=== PATIENT | male | born 1965 | race Caucasian/White ===

== ENCOUNTER 2024-11-09 14:16 | Inpatient (IN) | payer MEDICAID, OTHER ==
[~2024-11-09] VITALS: Ht 170.2 cm; Wt 90.3 kg
[2024-11-09 04:30] VITALS: BP 140/74; PULSE 94; RESP 18; TEMP 37.1
[2024-11-09] MEDS: SODIUM CHLORIDE 0.9% 250 ML IV ONE (15:44)
[2024-11-09 16:16] LABS: BASOPHILS % 1.4 % (0.0-2.0); EOSINOPHILS % 6.6 % (0.0-5.0); HEMATOCRIT. 31.4 % (42.0-52.0); HEMOGLOBIN. 9.8 g/dL (14.0-18.0); LYMPHOCYTES % 34.7 % (20.0-50.0); MEAN CORPUSCULAR HEMOGLOBIN 28.4 pg (28.0-32.0); MEAN CORPUSCULAR HGB CONC 31.1 g/dL (31.0-37.0); MEAN CORPUSCULAR VOLUME 91.2 fL (80.0-94.0); MEAN PLATELET VOLUME 8.9 fl (7.4-10.4); NEUTROPHILS % 43.3 % (40.0-76.0); PLATELET 120 x1000/uL (130-400); RED BLOOD CELL COUNT 3.44 mill/uL (4.7-6.1); WHITE BLOOD COUNT 4.1 x1000/uL (4.5-11.0)
[2024-11-09 16:17] LABS: DIFFERENTIAL COMMENT 1
[2024-11-09 16:18] LABS: ADD RBC MORPHOLOGY YES
[2024-11-09 16:27] LABS: CHLORIDE 113 mEq/L (98-107); POTASSIUM 5.1 mEq/L (3.5-5.1); SODIUM 145 mEq/L (136-145)
[2024-11-09 16:28] LABS: CARBON DIOXIDE 25 mEq/L (21-32)
[2024-11-09 16:29] LABS: CALCIUM 8.3 mg/dL (8.7-10.4)
[2024-11-09 16:33] LABS: CREATININE 0.7 mg/dL (0.6-1.3); GLUCOSE 137 mg/dL (70-105)
[2024-11-09 16:34] LABS: UREA NITROGEN BLOOD 14 mg/dL (9-23)
[2024-11-09 16:36] LABS: TROPONIN I HIGH SENSITIVITY 11 ng/L (3.0-53)
[2024-11-09 16:55] LABS: MICROCYTOSIS 1+; PLATELET ESTIMATE NORMAL
[2024-11-09] MEDS ORDERED: NALOXONE HCL 0.4MG/ML VIAL IV PRN (17:00)
[2024-11-09] MEDS: MORPHINE SULFATE 2 MG/ML INJ (NOT FOR IM USE) IV NR (17:01)
[2024-11-09] MEDS: NOREPINEPHRINE 8MG/250ML PMX 250 ML IV ONE (19:46)
[2024-11-09] MEDS ORDERED: GUAIFENESIN 200MG/10ML SUGAR FREE UDC PO PRN (20:30)
[2024-11-09] MEDS ORDERED: MAGNESIUM/ALUMINUM HYDROXIDE/SIMETHICONE 30ML UDC PO PRN (20:30)
[2024-11-09] MEDS ORDERED: CLONIDINE 0.1MG TABLET PO PRN (20:30)
[2024-11-09] MEDS ORDERED: NA PHOS,M-B/NA PHOS,DI-BA ENEMA 118ML PR PRN (20:30)
[2024-11-09] MEDS ORDERED: DOCUSATE SODIUM 100MG CAPSULE PO PRN (20:30)
[2024-11-09] MEDS ORDERED: ONDANSETRON HCL 4MG/2ML INJ IV PRN (20:30)
[2024-11-09] MEDS ORDERED: IPRATROPIUM/ALBUTEROL 0.5-3(2.5)MG/3ML NEB HHN PRN (20:30)
[2024-11-09] MEDS ORDERED: DEXTROSE 50% WATER 50ML SYRINGE IV PRN (20:30)
[2024-11-09 21:34] LABS: T4 FREE 1.03 ng/dL (0.89-1.76); THYROID STIMULATING HORMONE 3.88 uIU/mL (0.55-4.78)
[2024-11-09 21:35] LABS: FERRITIN 22 ng/mL (22-322); FOLIC ACID (FOLATE) SERUM > 20.00 ng/mL (>5.38)
[2024-11-09 21:36] LABS: VITAMIN B12 SERUM 690 pg/mL (211-911)
[2024-11-09 21:41] LABS: IRON 44 ug/dL (65-175)
[2024-11-09 21:42] LABS: LDL CHOLESTEROL 95 mg/dL (5-100); TRIGLYCERIDE 45 mg/dL (0-150)
[2024-11-09 21:43] LABS: CHOLESTEROL 134 mg/dL (<200); HDL CHOLESTEROL 34 mg/dL (>55)
[2024-11-09 21:44] LABS: PHOSPHORUS 3.8 mg/dL (2.5-4.9); TOTAL IRON BINDING CAPACITY 292 ug/dl (250-425)
[2024-11-09] MEDS: BLOOD SUGAR DIAGNOSTIC STRIP TEST SCH (21:50)
[2024-11-09] MEDS: INSULIN LISPRO 100 UNITS/ML SUBCUT SCH (21:50)
[2024-11-09] MEDS: NITROGLYCERIN 0.4MG TABLET SL SL PRN (22:43)
[2024-11-09] MEDS: KETOROLAC 15MG/ML VIAL IV NR (23:07)
[2024-11-09 23:23] LABS: TROPONIN I HIGH SENSITIVITY 13 ng/L (3.0-53)
[2024-11-09 23:24] LABS: CREATINE KINASE 43 IU/L (46-171)
[2024-11-09] MEDS: IOHEXOL-350 100 ML BOTTLE ONE (23:28)
[2024-11-10] MEDS: HYDROCODONE/ACETAMINOPHEN 5/325MG TABLET PO NR ×2 (01:22→21:07)
[2024-11-10] MEDS: MAGNESIUM 2 G PREMIX 50 ML IV NR (02:44)
[2024-11-10] MEDS: LIDOCAINE 5% PATCH TOP SCH (03:24)
[2024-11-10 04:00] VITALS: BP 140/74; PULSE 94; RESP 18; TEMP 37.1; O2SAT 97
[2024-11-10 04:23] LABS: CLARITY URINE CLEAR (CLEAR); COLOR URINE YELLOW (YELLOW); GLUCOSE URINE NEGATIVE (NEGATIVE); KETONES URINE NEGATIVE (NEGATIVE); LEUKOCYTE ESTERASE URINE TRACE (NEGATIVE); NITRITE URINE NEGATIVE (NEGATIVE); OCCULT BLOOD URINE NEGATIVE (NEGATIVE); PH URINE 7.5 (4.5-8.0); PROTEIN URINE NEGATIVE (NEGATIVE); SPECIFIC GRAVITY URINE 1.054 (1.005-1.030); UROBILINOGEN URINE 0.2 E.U./dL (0.2-1.0)
[2024-11-10 04:27] LABS: *AMPHETAMINES SCREEN URINE NEGATIVE (NEGATIVE); *BARBITURATES SCREEN URINE NEGATIVE (NEGATIVE); *BENZODIAZEPINES SCREEN URINE NEGATIVE (NEGATIVE); *COCAINE SCREEN URINE NEGATIVE (NEGATIVE); CANNABINOID URINE SCREEN NEGATIVE (NEGATIVE); ECSTASY MDMA SCREEN URINE NEGATIVE (NEGATIVE); METHADONE URINE SCREEN NEGATIVE (NEGATIVE); OPIATES URINE SCREEN PRESUMPTIVE POSITIVE (NEGATIVE); PHENCYCLIDINE URINE SCREEN NEGATIVE (NEGATIVE)
[2024-11-10 04:30] VITALS: BP 140/74; PULSE 94; RESP 18; TEMP 37.1
[2024-11-10 05:27] LABS: SQUAMOUS EPITHELIAL CELL URINE FEW /lpf (RARE/1+)
[2024-11-10 05:29] LABS: RBC URINE 0-2 /hpf (0-2)
[2024-11-10 05:30] LABS: BACTERIA URINE NONE SEEN
[2024-11-10 08:18] VITALS: BP 147/83; PULSE 103; RESP 20; TEMP 36.6; O2SAT 98
[2024-11-10] MEDS: AMLODIPINE 5MG TABLET PO SCH (08:28)
[2024-11-10] MEDS: PANTOPRAZOLE 40MG DR TABLET PO SCH (08:28)
[2024-11-10] MEDS: KETOROLAC 30MG/ML VIAL IV PRN (08:46)
[2024-11-10 11:18] LABS: CHLORIDE 109 mEq/L (98-107)
[2024-11-10 11:19] LABS: CALCIUM 8.5 mg/dL (8.7-10.4); CARBON DIOXIDE 23 mEq/L (21-32); POTASSIUM 4.7 mEq/L (3.5-5.1); SODIUM 141 mEq/L (136-145)
[2024-11-10 11:23] LABS: TROPONIN I HIGH SENSITIVITY 22 ng/L (3.0-53)
[2024-11-10 11:24] LABS: CREATININE 0.7 mg/dL (0.6-1.3); GLUCOSE 86 mg/dL (70-105)
[2024-11-10 11:25] LABS: UREA NITROGEN BLOOD 14 mg/dL (9-23)
[2024-11-10 11:26] LABS: ALANINE AMINOTRANSFERASE 32 IU/L (10-49); ALBUMIN 3.3 g/dL (3.2-4.8); ASPARTATE AMINOTRANSFERASE 78 IU/L (<34); BILIRUBIN DIRECT 0.4 mg/dL (<=3.0); CREATINE KINASE 48 IU/L (46-171); LACTATE DEHYDROGENASE 226 IU/L (120-246); T4 FREE 0.99 ng/dL (0.89-1.76)
[2024-11-10 11:27] LABS: BILIRUBIN TOTAL 1.1 mg/dL (0.1-1.0)
[2024-11-10 11:52] LABS: HEPATITIS B SURFACE ANTIGEN NEGATIVE (Negative)
[2024-11-10 12:13] LABS: HEPATITIS A AB IGM NEGATIVE (Negative); HEPATITIS B CORE AB IGM NEGATIVE (Negative)
[2024-11-10 12:14] LABS: HEPATITIS C AB NON REACTIVE (Neg) (Negative)
[2024-11-10 12:17] VITALS: BP 135/78; PULSE 99; RESP 20; TEMP 37.1; O2SAT 93
[2024-11-10] MEDS: ACETAMINOPHEN 325MG TABLET PO PRN (12:33)
[2024-11-10] MEDS: SODIUM CHLORIDE 0.9% 1,000 ML IV SCH (13:15)
[2024-11-10 15:51] VITALS: BP 140/80; PULSE 104; RESP 20; TEMP 37; O2SAT 97
[2024-11-10] MEDS: FERROUS SULFATE 325MG TABLET PO SCH (17:12)
[2024-11-10 20:00] VITALS: BP 145/68; PULSE 96; RESP 20; TEMP 37.3; O2SAT 97
[2024-11-10 20:42] LABS: BASOPHILS % 1.1 % (0.0-2.0); HEMATOCRIT. 32.3 % (42.0-52.0); HEMOGLOBIN. 10.4 g/dL (14.0-18.0); LYMPHOCYTES % 27.6 % (20.0-50.0); MEAN CORPUSCULAR HEMOGLOBIN 29.5 pg (28.0-32.0); MEAN CORPUSCULAR HGB CONC 32.2 g/dL (31.0-37.0); MEAN CORPUSCULAR VOLUME 91.7 fL (80.0-94.0); MEAN PLATELET VOLUME 8.7 fl (7.4-10.4); MONOCYTES % 14.9 % (2.0-8.0); NEUTROPHILS % 50.4 % (40.0-76.0); PLATELET 115 x1000/uL (130-400); RED BLOOD CELL COUNT 3.53 mill/uL (4.7-6.1); RED CELL DISTRIBUTION WIDTH 22.1 % (11.6-14.6); WHITE BLOOD COUNT 3.9 x1000/uL (4.5-11.0)
[2024-11-10 20:48] LABS: CHLORIDE 109 mEq/L (98-107); POTASSIUM 4.5 mEq/L (3.5-5.1); SODIUM 141 mEq/L (136-145)
[2024-11-10 20:49] LABS: CALCIUM 8.1 mg/dL (8.7-10.4); CARBON DIOXIDE 25 mEq/L (21-32)
[2024-11-10 20:52] LABS: DIFFERENTIAL COMMENT 1
[2024-11-10 20:54] LABS: CREATININE 0.8 mg/dL (0.6-1.3); GLUCOSE 114 mg/dL (70-105); UREA NITROGEN BLOOD 13 mg/dL (9-23)
[2024-11-10] MEDS ORDERED: MELATONIN 3MG TABLET PO NR (23:30)
[2024-11-11] VITALS (7 sets, daily range): BP systolic 131–159; BP diastolic 64–87; PULSE 76–107; RESP 18–20; TEMP 36.4–37.1; O2SAT 95–98
[2024-11-11] MEDS: ACETAMINOPHEN 325MG TABLET PO PRN (01:12)
[2024-11-11] MEDS ORDERED: METOPROLOL TARTRATE 5MG/5ML VIAL IV PRN (06:15)
[2024-11-11 06:56] LABS: EOSINOPHILS % 5.3 % (0.0-5.0); HEMOGLOBIN. 10.5 g/dL (14.0-18.0); LYMPHOCYTES % 25.5 % (20.0-50.0); MEAN CORPUSCULAR HEMOGLOBIN 30.3 pg (28.0-32.0); MEAN CORPUSCULAR HGB CONC 32.6 g/dL (31.0-37.0); MEAN PLATELET VOLUME 8.5 fl (7.4-10.4); MONOCYTES % 14.3 % (2.0-8.0); NEUTROPHILS % 53.9 % (40.0-76.0); PLATELET 110 x1000/uL (130-400); RED BLOOD CELL COUNT 3.45 mill/uL (4.7-6.1); RED CELL DISTRIBUTION WIDTH 22.3 % (11.6-14.6); WHITE BLOOD COUNT 3.9 x1000/uL (4.5-11.0)
[2024-11-11 07:07] LABS: CARBON DIOXIDE 24 mEq/L (21-32); CHLORIDE 110 mEq/L (98-107); POTASSIUM 4.5 mEq/L (3.5-5.1); SODIUM 140 mEq/L (136-145)
[2024-11-11 07:08] LABS: CALCIUM 8.3 mg/dL (8.7-10.4)
[2024-11-11 07:09] LABS: CREATINE KINASE MB FRACTION 1.6 ng/mL (0.5-3.6)
[2024-11-11 07:13] LABS: CREATININE 0.6 mg/dL (0.6-1.3); GLUCOSE 103 mg/dL (70-105); UREA NITROGEN BLOOD 12 mg/dL (9-23)
[2024-11-11 07:21] LABS: DIFFERENTIAL COMMENT 1
[2024-11-11] MEDS: DIPHENHYDRAMINE 25MG CAPSULE PO NR (11:31)
[2024-11-12] VITALS: BP 119/58; PULSE 90; RESP 18; TEMP 36.9; O2SAT 100
[2024-11-12 04:00] VITALS: BP 112/70; PULSE 110; RESP 20; TEMP 37.1; O2SAT 100
[2024-11-12 08:00] VITALS: BP 138/67; PULSE 114; RESP 20; TEMP 36.5; O2SAT 100
[2024-11-12 12:00] VITALS: BP 120/74; PULSE 105; RESP 18; TEMP 36.1; O2SAT 98
[2024-11-12 17:09] VITALS: BP 125/70; PULSE 75; TEMP 97.8; O2SAT 98
== END 2024-11-12 18:00 | disposition home or self-care (01) | DRG 204 ==
LOC: ER 14:16 → 7WST 17:06 → EDBEDREQ 17:11 → EDBEDREQTM 17:11 → EDBEDREQSVC 17:11
PROVIDERS: ADMIT Internal Medicine; ATTEND Internal Medicine
PROC: 06HY33Z Insertion of Infusion Device into Lower Vein, Percutaneous Approach (ICD-10-PCS; principal; 2024-11-09)
PROC: B54BZZA Ultrasonography of Right Lower Extremity Veins, Guidance (ICD-10-PCS; 2024-11-09)
DX: R07.81 Pleurodynia (principal); D61.818 Other pancytopenia; Z59.00 Homelessness unspecified; I95.9 Hypotension, unspecified; I50.9 Heart failure, unspecified; I11.0 Hypertensive heart disease with heart failure; D50.9 Iron deficiency anemia, unspecified; J44.9 Chronic obstructive pulmonary disease, unspecified; E83.42 Hypomagnesemia; K74.60 Unspecified cirrhosis of liver; D72.10 Eosinophilia, unspecified; F17.210 Nicotine dependence, cigarettes, uncomplicated; Z91.148 Patient's other noncompliance with medication regimen for other reason; Z88.8 Allergy status to other drugs, medicaments and biological substances; Z86.711 Personal history of pulmonary embolism; Z98.1 Arthrodesis status
CPT/HCPCS: 36415; 36556; 71045; 71275; 80048; 80061; 80076; 80305; 81003; 82550; 82553; 82607; 82728; 82746; 82962; 83036; 83540; 83550; 83605; 83615; 83735; 83880; 84100; 84145; 84439; 84443; 84484; 85025; 85044; 85379; 86705; 86709; 87340; 93005; 93306; 93970; 99291; J1885; J2270; J3475; J3490; J7030; J7050; Q0163; Q9967

== ENCOUNTER 2024-11-26 06:36 | Inpatient (IN) | payer OTHER ==
[~2024-11-26] VITALS: Ht 175.3 cm; Wt 94.8 kg
[2024-11-26] MEDS: SODIUM CHLORIDE 0.9% (SEPSIS BOLUS) IV ONE (07:01)
[2024-11-26] MEDS: MORPHINE SULFATE 4 MG/ML INJ (FOR IV/IM USE) IV STA (07:06)
[2024-11-26 07:30] LABS: CHLORIDE 106 mEq/L (98-107); SODIUM 140 mEq/L (136-145)
[2024-11-26 07:31] LABS: CALCIUM 8.7 mg/dL (8.7-10.4); CARBON DIOXIDE 26 mEq/L (21-32); HEMATOCRIT. 30.7 % (42.0-52.0); HEMOGLOBIN. 9.7 g/dL (14.0-18.0); MEAN CORPUSCULAR HEMOGLOBIN 29.4 pg (28.0-32.0); MEAN CORPUSCULAR HGB CONC 31.6 g/dL (31.0-37.0); MEAN CORPUSCULAR VOLUME 92.9 fL (80.0-94.0); PLATELET 158 x1000/uL (130-400); RED BLOOD CELL COUNT 3.31 mill/uL (4.7-6.1); RED CELL DISTRIBUTION WIDTH 22.4 % (11.6-14.6); WHITE BLOOD COUNT 6.5 x1000/uL (4.5-11.0)
[2024-11-26 07:36] LABS: CREATININE 0.8 mg/dL (0.6-1.3); GLUCOSE 130 mg/dL (70-105); TROPONIN I HIGH SENSITIVITY 11 ng/L (3.0-53); UREA NITROGEN BLOOD 18 mg/dL (9-23)
[2024-11-26 07:37] LABS: ETHANOL BLOOD < 10 mg/dL (<10)
[2024-11-26 07:38] LABS: ALANINE AMINOTRANSFERASE 27 IU/L (10-49); ALBUMIN 3.4 g/dL (3.2-4.8); ASPARTATE AMINOTRANSFERASE 41 IU/L (<34); BILIRUBIN DIRECT 0.2 mg/dL (<=3.0); CREATINE KINASE 61 IU/L (46-171)
[2024-11-26 07:39] LABS: BILIRUBIN TOTAL 0.7 mg/dL (0.1-1.0); PROTEIN TOTAL 6.3 g/dL (6.0-8.3); PROTHROMBIN TIME 10.9 sec (9.6-11.0)
[2024-11-26 07:43] LABS: DIFFERENTIAL COMMENT 1
[2024-11-26 10:08] LABS: ANISOCYTOSIS 2+; PLATELET ESTIMATE NORMAL
[2024-11-26] MEDS ORDERED: NALOXONE HCL 0.4MG/ML VIAL IV PRN (11:15)
[2024-11-26] MEDS: IOHEXOL-300 100 ML BOTTLE ONE (11:25)
[2024-11-26] MEDS: MORPHINE SULFATE 2 MG/ML INJ (NOT FOR IM USE) IV PRN (11:30)
[2024-11-26 11:53] LABS: CLARITY URINE CLEAR (CLEAR); COLOR URINE YELLOW (YELLOW); GLUCOSE URINE NEGATIVE (NEGATIVE); KETONES URINE NEGATIVE (NEGATIVE); LEUKOCYTE ESTERASE URINE NEGATIVE (NEGATIVE); NITRITE URINE NEGATIVE (NEGATIVE); OCCULT BLOOD URINE NEGATIVE (NEGATIVE); PH URINE 6.5 (4.5-8.0); PROTEIN URINE NEGATIVE (NEGATIVE); SPECIFIC GRAVITY URINE 1.038 (1.005-1.030); UROBILINOGEN URINE 0.2 E.U./dL (0.2-1.0)
[2024-11-26] MEDS ORDERED: ONDANSETRON HCL 4MG/2ML INJ IV PRN (13:15)
[2024-11-26] MEDS ORDERED: ACETAMINOPHEN 325MG TABLET PO PRN (13:15)
[2024-11-26] MEDS ORDERED: CLONIDINE 0.1MG TABLET PO PRN (13:15)
[2024-11-26 16:00] VITALS: BP 130/74; PULSE 91; RESP 19; TEMP 36.6; O2SAT 96
[2024-11-26 16:18] VITALS: BP 102/58; PULSE 81; RESP 18; TEMP 36.6
[2024-11-26] MEDS: ENOXAPARIN 40MG/0.4ML SYR SUBCUT SCH (17:37)
[2024-11-26 20:00] VITALS: BP 119/66; PULSE 112; RESP 19; TEMP 36.6; O2SAT 95
[2024-11-27] VITALS: BP 127/58; PULSE 114; RESP 18; TEMP 36.5; O2SAT 96
[2024-11-27] MEDS: ZOLPIDEM TARTRATE 5MG TABLET PO PRN (00:20)
[2024-11-27] MEDS: TIZANIDINE HCL 2MG TABLET PO PRN (01:14)
[2024-11-27 04:00] VITALS: BP 120/55; PULSE 105; RESP 18; TEMP 36.7; O2SAT 96
[2024-11-27 06:30] LABS: CHLORIDE 106 mEq/L (98-107); POTASSIUM 4.5 mEq/L (3.5-5.1); SODIUM 140 mEq/L (136-145)
[2024-11-27 06:31] LABS: CALCIUM 8.1 mg/dL (8.7-10.4); CARBON DIOXIDE 25 mEq/L (21-32)
[2024-11-27 06:36] LABS: CREATININE 0.6 mg/dL (0.6-1.3); GLUCOSE 96 mg/dL (70-105); UREA NITROGEN BLOOD 13 mg/dL (9-23)
[2024-11-27 06:57] LABS: EOSINOPHILS % 5.7 % (0.0-5.0); HEMATOCRIT. 27.6 % (42.0-52.0); LYMPHOCYTES % 29.3 % (20.0-50.0); MEAN CORPUSCULAR HEMOGLOBIN 30.4 pg (28.0-32.0); MEAN CORPUSCULAR HGB CONC 32.8 g/dL (31.0-37.0); MEAN CORPUSCULAR VOLUME 92.7 fL (80.0-94.0); MEAN PLATELET VOLUME 8.7 fl (7.4-10.4); MONOCYTES % 13.5 % (2.0-8.0); NEUTROPHILS % 50.5 % (40.0-76.0); PLATELET 134 x1000/uL (130-400); RED BLOOD CELL COUNT 2.98 mill/uL (4.7-6.1); RED CELL DISTRIBUTION WIDTH 21.7 % (11.6-14.6); WHITE BLOOD COUNT 6.3 x1000/uL (4.5-11.0)
[2024-11-27 08:00] VITALS: BP 125/64; PULSE 83; RESP 18; TEMP 36.8; O2SAT 96
[2024-11-27 12:00] VITALS: BP 118/65; PULSE 84; RESP 16; TEMP 36.7; O2SAT 97
[2024-11-27] MEDS: METHOCARBAMOL 500MG TABLET PO PRN (12:49)
[2024-11-27 16:00] VITALS: BP 108/60; PULSE 80; RESP 18; TEMP 36.4; O2SAT 99
[2024-11-27 20:30] VITALS: BP 103/53; PULSE 71; RESP 18; TEMP 36.4; O2SAT 99
[2024-11-27] MEDS: HYDROCODONE/ACETAMINOPHEN 5/325MG TABLET PO PRN (20:46)
[2024-11-28] VITALS: BP 101/50; PULSE 70; RESP 18; TEMP 36.6; O2SAT 96
[2024-11-28 04:00] VITALS: BP 103/56; PULSE 68; RESP 18; TEMP 36.8; O2SAT 99
[2024-11-28] MEDS: GABAPENTIN 300MG CAPSULE PO SCH (06:01)
[2024-11-28 07:24] LABS: CHLORIDE 103 mEq/L (98-107); POTASSIUM 3.9 mEq/L (3.5-5.1); SODIUM 139 mEq/L (136-145)
[2024-11-28 07:25] LABS: CALCIUM 8.8 mg/dL (8.7-10.4); CARBON DIOXIDE 24 mEq/L (21-32)
[2024-11-28 07:30] LABS: CREATININE 0.7 mg/dL (0.6-1.3); GLUCOSE 208 mg/dL (70-105); UREA NITROGEN BLOOD 16 mg/dL (9-23)
[2024-11-28 07:52] LABS: BASOPHILS % 0.9 % (0.0-2.0); EOSINOPHILS % 9.1 % (0.0-5.0); HEMATOCRIT. 28.5 % (42.0-52.0); HEMOGLOBIN. 9.4 g/dL (14.0-18.0); LYMPHOCYTES % 35.6 % (20.0-50.0); MEAN CORPUSCULAR HEMOGLOBIN 30.5 pg (28.0-32.0); MEAN CORPUSCULAR HGB CONC 32.9 g/dL (31.0-37.0); MEAN CORPUSCULAR VOLUME 92.9 fL (80.0-94.0); MEAN PLATELET VOLUME 9.1 fl (7.4-10.4); MONOCYTES % 13.1 % (2.0-8.0); NEUTROPHILS % 41.3 % (40.0-76.0); PLATELET 145 x1000/uL (130-400); RED BLOOD CELL COUNT 3.07 mill/uL (4.7-6.1); RED CELL DISTRIBUTION WIDTH 21.5 % (11.6-14.6); WHITE BLOOD COUNT 4.5 x1000/uL (4.5-11.0)
[2024-11-28 08:00] VITALS: BP 102/46; PULSE 74; RESP 20; TEMP 37; O2SAT 98
[2024-11-28] MEDS ORDERED: OXYC-100 MT (14:34)
[2024-11-28] MEDS ORDERED: TIZA-191 PO (14:36)
[2024-11-28] MEDS ORDERED: GABA-1180 PO (14:36)
[2024-11-28 14:55] VITALS: BP 102/46; PULSE 74; TEMP 98.6; O2SAT 98
== END 2024-11-28 16:06 | disposition home or self-care (01) | DRG 552 ==
LOC: ER 06:36 → EDBEDREQ 10:10 → EDBEDREQTM 10:10 → 7WST 14:45
PROVIDERS: ADMIT Internal Medicine; ATTEND Internal Medicine
DX: M54.59 Other low back pain (principal); F11.20 Opioid dependence, uncomplicated; M48.56XA Collapsed vertebra, not elsewhere classified, lumbar region, initial encounter for fracture; I50.9 Heart failure, unspecified; J44.9 Chronic obstructive pulmonary disease, unspecified; D64.9 Anemia, unspecified; G89.29 Other chronic pain; F32.A Depression, unspecified; I11.0 Hypertensive heart disease with heart failure; Z88.0 Allergy status to penicillin
CPT/HCPCS: 36415; 71045; 72132; 72148; 80048; 80076; 80320; 81003; 82550; 83605; 83880; 84145; 84484; 85025; 93005; 93970; 99291; J1650; J2270; J7030; Q9967; G0480

== ENCOUNTER 2025-02-11 11:24 | Emergency (ER) | payer MEDICAID, OTHER ==
[~2025-02-11] VITALS: Ht 167.6 cm; Wt 91.0 kg
[~2025-02-11 11:24] MED LIST: ASPI-1497 PO; GABA-534 PO; ISOS10TA95 MT; LIDO700A30 TP; NAPR-681 PO; PRAZ1CAP5 PO; PROT20 MT; SERT20OR6 PO; TIZA-191 PO; TRAZ-252 PO
[2025-02-11 11:26] VITALS: O2SAT 94
[2025-02-11] MEDS: KETOROLAC 30MG/ML VIAL IM ONE (11:53)
[2025-02-11] MEDS: LIDOCAINE 5% PATCH TOP SCH (11:54)
[2025-02-11] MEDS: HYDROCODONE/ACETAMINOPHEN 5/325MG TABLET PO ONE (15:56)
[2025-02-11] MEDS ORDERED: HYDR-4001 MT (16:16)
[2025-02-11 16:29] VITALS: BP 144/87; PULSE 97; RESP 18; TEMP 36.9; O2SAT 98
== END 2025-02-11 16:30 | disposition home or self-care (01) ==
LOC: ER 11:24
DX: M54.42 Lumbago with sciatica, left side (principal); I50.9 Heart failure, unspecified; I11.0 Hypertensive heart disease with heart failure; F32.A Depression, unspecified; J44.9 Chronic obstructive pulmonary disease, unspecified; Z98.1 Arthrodesis status; Z79.899 Other long term (current) drug therapy; Z79.82 Long term (current) use of aspirin; Z88.8 Allergy status to other drugs, medicaments and biological substances; Z88.0 Allergy status to penicillin
CPT/HCPCS: 99285; 72100; 96372; J1885

== ENCOUNTER 2025-03-11 02:26 | Emergency (ER) | payer MEDICAID, OTHER ==
[~2025-03-11] VITALS: Ht 177.8 cm; Wt 100.0 kg
[~2025-03-11 02:26] MED LIST changes: +HYDR-4001 MT
[2025-03-11 02:53] VITALS: O2SAT 97
[2025-03-11 04:27] VITALS: BP 131/85; PULSE 100; RESP 14; TEMP 37.2; O2SAT 97
== END 2025-03-11 04:58 ==
LOC: ER 02:26
DX: F32.A Depression, unspecified (principal); I11.0 Hypertensive heart disease with heart failure; I50.9 Heart failure, unspecified; Z02.89 Encounter for other administrative examinations; J44.9 Chronic obstructive pulmonary disease, unspecified; F10.90 Alcohol use, unspecified, uncomplicated; Z65.3 Problems related to other legal circumstances; Z79.82 Long term (current) use of aspirin; Z79.899 Other long term (current) drug therapy; Z88.0 Allergy status to penicillin; Z88.8 Allergy status to other drugs, medicaments and biological substances; Y90.9 Presence of alcohol in blood, level not specified
CPT/HCPCS: 93005; 99283; 99284

== ENCOUNTER 2025-03-29 22:34 | Emergency (ER) | payer MEDICAID, OTHER ==
[~2025-03-29] VITALS: Ht 180.3 cm; Wt 73.0 kg
[2025-03-29 23:02] VITALS: BP 111/73; PULSE 104; RESP 18; TEMP 36.7; O2SAT 98
== END 2025-03-30 00:41 | disposition left against medical advice (07) ==
LOC: ER 22:34
DX: M79.604 Pain in right leg (principal); M79.605 Pain in left leg; Z53.21 Procedure and treatment not carried out due to patient leaving prior to being seen by health care provider

== ENCOUNTER 2025-08-02 16:43 | Emergency (ER) | payer MEDICAID ==
[~2025-08-02] VITALS: Ht 170.2 cm; Wt 78.0 kg
[~2025-08-02 16:43] MED LIST changes: +FURO40TA5 MT; -ISOS10TA95 MT; -NAPR-681 PO; +POTA-354 MT
[2025-08-02 16:48] VITALS: BP 113/68; PULSE 111; RESP 16; TEMP 98.4; O2SAT 100
[2025-08-02] MEDS: ONDANSETRON HCL 4MG/2ML INJ IV ONE (17:46)
[2025-08-02] MEDS: SODIUM CHLORIDE 0.9% 1,000 ML IV ONE (17:47)
[2025-08-02 17:59] LABS: HEMATOCRIT. 33.8 % (42.0-52.0); HEMOGLOBIN. 10.9 g/dL (14.0-18.0); MEAN PLATELET VOLUME 8.7 fl (7.4-10.4); PLATELET 108 x1000/uL (130-400); RED BLOOD CELL COUNT 3.44 mill/uL (4.7-6.1); RED CELL DISTRIBUTION WIDTH 18.3 % (11.6-14.6)
[2025-08-02 18:11] LABS: CREATININE 0.8 mg/dL (0.6-1.3); UREA NITROGEN BLOOD 9 mg/dL (9-23)
[2025-08-02 18:12] LABS: ASPARTATE AMINOTRANSFERASE 36 IU/L (<34)
[2025-08-02 18:13] LABS: BILIRUBIN DIRECT 0.6 mg/dL (<=3.0); BILIRUBIN TOTAL 1.5 mg/dL (0.1-1.0); PROTEIN TOTAL 6.0 g/dL (6.0-8.3)
[2025-08-02 18:19] LABS: TROPONIN I HIGH SENSITIVITY 78 ng/L (3.0-53)
[2025-08-02 18:20] LABS: EOSINOPHILS % MANUAL 2.0 % (0.0-5.0); LYMPHOCYTES % MANUAL 24.0 % (20.0-50.0); MONOCYTES % MANUAL 23.0 % (2.0-8.0); NEUTROPHILS % MANUAL 51.0 % (45.0-75.0); NUCLEATED RED BLOOD CELLS 3 /100 WBC; PLATELET ESTIMATE NORMAL
== END 2025-08-02 19:00 | disposition left against medical advice (07) ==
LOC: ER 16:43 → CMPBEDREQ 19:08
DX: R10.84 Generalized abdominal pain (principal); I11.0 Hypertensive heart disease with heart failure; I50.9 Heart failure, unspecified; Z79.82 Long term (current) use of aspirin; Z79.899 Other long term (current) drug therapy; Z88.0 Allergy status to penicillin; Z88.8 Allergy status to other drugs, medicaments and biological substances
CPT/HCPCS: 99283; 96374; 96361; 80076; 80048; 83880; 83690; 85025; 84484; 36415; J2405; J7030